=== PATIENT | male | born 1945 | race Caucasian/White ===

== ENCOUNTER → 2016-09-18 | Outpatient (CLI) | payer MEDICARE, BC ==
[~2016-09-18] MED LIST: ALDACTONE25 MG PO; ASPIRIN EC81 MG PO; CALCIUM600 MG PO; CPAP INH; FISH OIL1000 MG PO; FLONASE 50 MCG/16 GM NOSE; GLUCOPHAGE1000 MG PO; K-TAB ER20 MEQ PO; LASIX80 MG PO; LIPITOR40 MG PO; LOPRESSOR100 M1 PO; MOBIC15 MG PO; NEURONTIN600 MG PO; PRILOSEC20 MG PO; VITAMIN D1000 UNIT PO; VITAMIN E400 UNI1 PO; ZYLOPRIM300 MG PO; ZYRTEC10 MG PO
== END ==
LOC: LKCL 11:30
DX: Z79.899 Other long term (current) drug therapy (principal); Z13.89 Encounter for screening for other disorder; I10 Essential (primary) hypertension; E87.6 Hypokalemia; E78.00 Pure hypercholesterolemia, unspecified